=== PATIENT | female | born 1965 | race Caucasian/White ===

== ENCOUNTER 2016-07-24 21:26 | Emergency (ER) | payer SELFPAY ==
[~2016-07-24] VITALS: Ht 167.6 cm; Wt 105.0 kg
[~2016-07-24 21:26] MED LIST: HYDR12.56 PO; LISI-363 PO; LISI-515 PO; METHI10 PO; METO25 PO; METO25TA3 PO
[2016-07-24 21:32] VITALS: BP 160/91; PULSE 87; RESP 18; TEMP 97.9; O2SAT 97
--- NOTE | 2016-07-24 22:37 | PD ---
HPI Chief Complaint: Medication Refill Request Time Seen by Provider: 20:20 (Crys Phan) Time Seen by Provider: 22:01 (Олег Arreola MD) Travel History International Travel<30 days: No Contact w/Intl Traveler<30days: No Traveled to known affect area: No (Crys Phan) History of Present Illness HPI Patient's a 51-year-old female presenting to emergency for refill of her methimazole. She states that she went to [facility] and they told her to come back here to have it filled as they would not fill it. Patient states that she is afraid she is going to have a thyroid storm. She just started a job and does not have insurance benefits for 30 days. She denies any complaints at this time. She denies any palpitations, tachycardia, chest pain. Patient has been out of his medication for several months. (Crys Phan) [facility] Past Medical History Arthritis: Yes (LEFT KNEE) Heart Rhythm Problems: Yes (MURMUR) Cancer: No Cardiac Catheterization: No Cardiovascular Problems: Yes (HTN) High Cholesterol: No Congestive Heart Failure: Yes (hx) Diabetes: No Diminished Hearing: No Endocrine: Yes (GRAVES DISEASE) Gastrointestinal Disorders: No Genitourinary: No Headaches: Yes Hypertension: Yes Immune Disorder: Yes (Graves) Implanted Vascular Access Dvce: No Musculoskeletal: Yes Neurologic: Yes Psychiatric: No Reproductive: No Respiratory: Yes Thyroid Disease: Yes (GRAVES DISEASE) PNEUMOCCOCAL Vaccine (Year): 2 ?: Not Menopausal: No : 4 Para: 3 Miscarriage: 1 : 0 Ectopic : Yes (2001) (Crys Phan) Past Surgical History Coronary Artery Bypass Graft: No Gynecologic Surgery: Yes (hx ectopic 2001) Other Surgery: Yes (ectopic ) (Crys Phan) Social History Alcohol Use: No Tobacco Use: No Substance Use: No (Crys Phan) Allergies-Medications (Allergen,Severity, Reaction): Coded Allergies: No Known Allergies (Verified , 07/24/16) Reported Meds & Prescriptions Reported Meds & Active Scripts Active Lisinopril 20 Mg Tab 20 Mg PO DAILY Hydrochlorothiazide 12.5 Mg Tab 12.5 Mg PO DAILY Metoprolol Tartrate 25 Mg Tab 25 Mg PO BID Metoprolol Tartrate 25 mg (Metoprolol Tartrate) 25 Mg Tab 25 Mg PO BID 30 Days Lisinopril 20 mg (Lisinopril) 20 Mg Tab 1 Tab PO DAILY 30 Days Hydrochlorothiazide (Miscellaneous Medication) 12.5 Mg Tab 1 Tab PO DAILY 30 Days Hydrochlorothiazide (Miscellaneous Medication) 12.5 Mg Cap 12.5 Mg PO BID 30 Days Lisinopril 20 mg (Lisinopril) 20 Mg Tab 1 Tab PO DAILY 30 Days Tapazole 10 Mg10 Mg 10 Mg Tab 25 Mg PO BID 30 Days Metoprolol Tartrate 25 mg (Metoprolol Tartrate) 25 Mg Tab 50 Mg PO BID 30 Days (Олег Arreola MD) Review of Systems Except as stated in HPI: all other systems reviewed are Neg (Crys Phan) Physical Exam Narrative GENERAL: Well-nourished, well-developed patient. In no acute distress SKIN: Warm and dry. HEAD: Normocephalic. EYES: No scleral icterus. No injection or drainage. NECK: Supple, trachea midline. No JVD or lymphadenopathy. CARDIOVASCULAR: Regular rate and rhythm without murmurs, gallops, or rubs. RESPIRATORY: Breath sounds equal bilaterally. No accessory muscle use. (Crys Phan) Data Data Last Documented VS Vital Signs Date Time Temp Pulse Resp B/P Pulse Ox O2 Delivery O2 Flow Rate FiO2 07/24/16 21:32 97.9 87 18 160/91 97 (Олег Arreola MD) [facility] Medical Decision Making Medical Screen Exam Complete: Yes Emergency Medical Condition: No Medical Record Reviewed: Yes Interpretation(s) Vital Signs Date Time Temp Pulse Resp B/P Pulse Ox O2 Delivery O2 Flow Rate FiO2 07/24/16 21:32 97.9 87 18 160/91 97 Differential Diagnosis Medication refill versus hyperthyroidism versus hypertension versus other Narrative Course Patient is a 51-year-old female who presented to the emergency department for a medication refill of her methimazole. Patient has been off of it for at least 3 months if not longer. I personally saw the patient on June 10, 2016 at the main [place] [facility]. At that time she was advised that methimazole needs to have follow-up for dose titration, labs. She was encouraged to follow up with a primary doctor to have blood work performed and medication prescribed. Patient is presenting stating that the doctor at [facility] in the emergency department told her to come back here and have the medication prescribed. Patient was once again told that she will need to see a primary doctor to have this medication dosed appropriately. Patient was advised that we are not able to follow her as this is an emergency department. At that time she began to get agitated stating "I thought this was a [facility]". She then stated that she was going to "[place]". At that time I discussed with my attending physician, Dr. Arreola who came and spoke with the patient, he reiterated what I had already a told her twice before. That she will need to find a primary doctor or clinic to draw labs and monitor her thyroid levels. Patient then left the ER stating that we were unfit to be doctors. A medical screening exam was performed: At the time of evaluation the presenting medical condition was determined not to be of an emergent nature. The patient was given the option of receiving additional care, but declined. Patient was given options for additional community resources from which to obtain care. The Patient Has Been advised to seek medical attention for their presenting complaint. The patient has been advised to return to the ER at any time if an emergent condition develops. (Crys Phan) Diagnosis Primary Impression: Encounter for medical screening examination Condition: Stable Crys Phan Jul 24, 2016 22:37 Олег Arreola MD Jul 25, 2016 19:00
== END 2016-07-24 22:30 | disposition left against medical advice (07) ==
LOC: PHEFT 21:26
DX: Z76.0 Encounter for issue of repeat prescription (principal); M19.90 Unspecified osteoarthritis, unspecified site; I10 Essential (primary) hypertension; E05.00 Thyrotoxicosis with diffuse goiter without thyrotoxic crisis or storm
CPT/HCPCS: 99281

== ENCOUNTER 2017-11-01 11:32 | Emergency (ER) | payer SELFPAY ==
[~2017-11-01] VITALS: Ht 167.6 cm; Wt 90.0 kg
[2017-11-01 11:48] VITALS: BP 155/81; PULSE 85; O2SAT 97
[2017-11-01] MEDS ORDERED: METHI10 PO (11:57)
[2017-11-01] MEDS ORDERED: FURO20TA PO (11:57)
[2017-11-01] MEDS ORDERED: METO25TA3 PO (11:57)
--- NOTE | 2017-11-01 12:06 | PD ---
HPI Chief Complaint: Edema Time Seen by Provider: 11:57 Travel History International Travel<30 days: No Contact w/Intl Traveler<30days: No Traveled to known affect area: No History of Present Illness HPI 52-year-old female with history of hypertension and CHF which she reports that diagnosis was removed from her history, presents emergency department today for evaluation of lower extremity edema worsening over the last 4-5 days. Patient states she had some Lasix left over and she took 3 or 4 tablets over the last 2- 3 days and it did not seem to help the edema. She denies any shortness of breath. No chest tightness. No difficulty breathing. She reports no pain. Patient states she is currently homeless and lives in her car. She has been eating very salty foods. She has no other symptoms to report at this time. PFSH Past Medical History Arthritis: Yes (LEFT KNEE) Heart Rhythm Problems: Yes (MURMUR) Cancer: No Cardiac Catheterization: No Cardiovascular Problems: Yes (HTN) High Cholesterol: No Congestive Heart Failure: Yes (hx) Diabetes: No Diminished Hearing: No Endocrine: Yes (GRAVES DISEASE) Gastrointestinal Disorders: No Genitourinary: No Headaches: Yes Hypertension: Yes Immune Disorder: Yes (Graves) Implanted Vascular Access Dvce: No Musculoskeletal: Yes Neurologic: Yes Psychiatric: No Reproductive: No Respiratory: Yes Thyroid Disease: Yes (GRAVES DISEASE) PNEUMOCCOCAL Vaccine (Year): 2 ?: Not Menopausal: No : 4 Para: 3 Miscarriage: 1 : 0 Ectopic : Yes (2001) Past Surgical History Coronary Artery Bypass Graft: No Gynecologic Surgery: Yes (hx ectopic 2001) Other Surgery: Yes (ectopic ) Social History Alcohol Use: No Tobacco Use: No Substance Use: No Allergies-Medications (Allergen,Severity, Reaction): Coded Allergies: No Known Allergies (Verified , 07/24/16) Reported Meds & Prescriptions Reported Meds & Active Scripts Active Reported Metoprolol Tartrate 25 Mg Tab 25 Mg PO BID Methimazole 10 Mg Tab 10 Mg PO TID Furosemide 20 Mg Tab 20 Mg PO DAILY Review of Systems Except as stated in HPI: all other systems reviewed are Neg Physical Exam Narrative GENERAL: Well-nourished female patient, sitting up in bed in no acute distress SKIN: Focused skin assessment warm/dry. HEAD: Atraumatic. Normocephalic. EYES: Pupils equal and round. No scleral icterus. No injection or drainage. ENT: No nasal bleeding or discharge. Mucous membranes pink and moist. NECK: Trachea midline. No JVD. CARDIOVASCULAR: Regular rate and rhythm. No murmur appreciated. RESPIRATORY: No accessory muscle use. Diminished bases but otherwise clear to auscultation. Breath sounds equal bilaterally. GASTROINTESTINAL: Abdomen soft, non-tender, nondistended. Hepatic and splenic margins not palpable. MUSCULOSKELETAL: No obvious deformities. No clubbing. No cyanosis. 1+ bilateral lower extremity edema. Nonpitting NEUROLOGICAL: Awake and alert. No obvious cranial nerve deficits. Motor grossly within normal limits. Normal speech. PSYCHIATRIC: Appropriate mood and affect; insight and judgment normal. Data Data Last Documented VS Vital Signs Date Time Temp Pulse Resp B/P (MAP) Pulse Ox O2 Delivery O2 Flow Rate FiO2 11/01/17 12:12 16 97 Room Air 11/01/17 11:48 85 Orders Orders Complete Blood Count With Diff (11/01/17 12:03) Comprehensive Metabolic Panel (11/01/17 12:03) B-Type Natriuretic Peptide (11/01/17 12:03) Urinalysis - C+S If Indicated (11/01/17 12:03) Iv Access Insert/Monitor (11/01/17 12:03) Electrocardiogram (11/01/17 12:03) Ecg Monitoring (11/01/17 12:03) Oximetry (11/01/17 12:03) Oxygen Administration (11/01/17 12:03) Chest, Single Ap (11/01/17 12:03) Sodium Chloride 0.9% Flush (Ns Flush) (11/01/17 12:15) Ed Discharge Order (11/01/17 14:29) Labs Laboratory Tests Test 11/01/17 12:11 11/01/17 12:15 White Blood Count 8.0 TH/MM3 Red Blood Count 4.85 MIL/MM3 Hemoglobin 12.8 GM/DL Hematocrit 38.2 % Mean Corpuscular Volume 78.7 FL Mean Corpuscular Hemoglobin 26.4 PG Mean Corpuscular Hemoglobin Concent 33.6 % Red Cell Distribution Width 14.4 % Platelet Count 212 TH/MM3 Mean Platelet Volume 9.0 FL Neutrophils (%) (Auto) 68.9 % Lymphocytes (%) (Auto) 23.9 % Monocytes (%) (Auto) 6.7 % Eosinophils (%) (Auto) 0.0 % Basophils (%) (Auto) 0.5 % Neutrophils # (Auto) 5.5 TH/MM3 Lymphocytes # (Auto) 1.9 TH/MM3 Monocytes # (Auto) 0.5 TH/MM3 Eosinophils # (Auto) 0.0 TH/MM3 Basophils # (Auto) 0.0 TH/MM3 CBC Comment DIFF FINAL Differential Comment Blood Urea Nitrogen 12 MG/DL Creatinine 0.77 MG/DL Random Glucose 115 MG/DL Total Protein 8.1 GM/DL Albumin 3.6 GM/DL Calcium Level 8.7 MG/DL Alkaline Phosphatase 116 U/L Aspartate Amino Transf (AST/SGOT) 22 U/L Alanine Aminotransferase (ALT/SGPT) 31 U/L Total Bilirubin 0.3 MG/DL Sodium Level 142 MEQ/L Potassium Level 3.4 MEQ/L Chloride Level 105 MEQ/L Carbon Dioxide Level 27.5 MEQ/L Anion Gap 10 MEQ/L Estimat Glomerular Filtration Rate 79 ML/MIN B-Type Natriuretic Peptide 3 PG/ML Urine Color YELLOW Urine Turbidity CLOUDY Urine pH 5.0 Urine Specific [place] 1.026 Urine Protein 30 mg/dL Urine Glucose (UA) NEG mg/dL Urine Ketones TRACE mg/dL Urine Occult Blood LARGE Urine Nitrite NEG Urine Bilirubin NEGATIVE Urine Urobilinogen 2.0 MG/DL Urine Leukocyte Esterase NEGATIVE Urine RBC 28 /hpf Urine WBC 3 /hpf Urine Squamous Epithelial Cells 19 /hpf Urine Bacteria RARE /hpf Urine Mucus MANY /lpf Microscopic Urinalysis Comment CULT NOT INDICATED MDM Medical Decision Making Medical Screen Exam Complete: Yes Emergency Medical Condition: Yes Medical Record Reviewed: Yes Differential Diagnosis Dependent edema versus electrolyte abnormality versus CHF Narrative Course 52-year-old female presents emergency department for evaluation lower extremity edema. Patient appears well and without distress. Her vital signs are stable. Imaging studies and lab work is ordered. Laboratory Tests Test 11/01/17 12:11 11/01/17 12:15 White Blood Count 8.0 TH/MM3 Red Blood Count 4.85 MIL/MM3 Hemoglobin 12.8 GM/DL Hematocrit 38.2 % Mean Corpuscular Volume 78.7 FL Mean Corpuscular Hemoglobin 26.4 PG Mean Corpuscular Hemoglobin Concent 33.6 % Red Cell Distribution Width 14.4 % Platelet Count 212 TH/MM3 Mean Platelet Volume 9.0 FL Neutrophils (%) (Auto) 68.9 % Lymphocytes (%) (Auto) 23.9 % Monocytes (%) (Auto) 6.7 % Eosinophils (%) (Auto) 0.0 % Basophils (%) (Auto) 0.5 % Neutrophils # (Auto) 5.5 TH/MM3 Lymphocytes # (Auto) 1.9 TH/MM3 Monocytes # (Auto) 0.5 TH/MM3 Eosinophils # (Auto) 0.0 TH/MM3 Basophils # (Auto) 0.0 TH/MM3 CBC Comment DIFF FINAL Differential Comment Blood Urea Nitrogen 12 MG/DL Creatinine 0.77 MG/DL Random Glucose 115 MG/DL Total Protein 8.1 GM/DL Albumin 3.6 GM/DL Calcium Level 8.7 MG/DL Alkaline Phosphatase 116 U/L Aspartate Amino Transf (AST/SGOT) 22 U/L Alanine Aminotransferase (ALT/SGPT) 31 U/L Total Bilirubin 0.3 MG/DL Sodium Level 142 MEQ/L Potassium Level 3.4 MEQ/L Chloride Level 105 MEQ/L Carbon Dioxide Level 27.5 MEQ/L Anion Gap 10 MEQ/L Estimat Glomerular Filtration Rate 79 ML/MIN B-Type Natriuretic Peptide 3 PG/ML Urine Color YELLOW Urine Turbidity CLOUDY Urine pH 5.0 Urine Specific [place] 1.026 Urine Protein 30 mg/dL Urine Glucose (UA) NEG mg/dL Urine Ketones TRACE mg/dL Urine Occult Blood LARGE Urine Nitrite NEG Urine Bilirubin NEGATIVE Urine Urobilinogen 2.0 MG/DL Urine Leukocyte Esterase NEGATIVE Urine RBC 28 /hpf Urine WBC 3 /hpf Urine Squamous Epithelial Cells 19 /hpf Urine Bacteria RARE /hpf Urine Mucus MANY /lpf Microscopic Urinalysis Comment CULT NOT INDICATED Last Impressions Chest X-Ray 11/01/17 1203 Signed Impressions: Service Date/Time: Wednesday, November 01, 2017 12:23 - CONCLUSION: Linear left basilar atelectasis. Yaya Xie MD Findings are reviewed and discussed with my attending physician. Patient be discharged home to follow-up the primary care provider. She is counseled on a low-sodium diet and elevating her lower extremities. She agrees to return immediately with any acute worsening symptoms. Diagnosis Primary Impression: Bilateral lower extremity edema Referrals: Primary Care Physician Patient Instructions: Edema (ED), General Instructions Additional Instructions: Elevate the affected extremities Avoid salt or high sodium foods Return immediately with any acute worsening symptoms Med/Other Pt SpecificInfo: No Change to Meds Disposition: 01 DISCHARGE HOME Condition: Stable Leanna Phipps November 01, 2017 12:05
[2017-11-01 12:12] VITALS: RESP 16; O2SAT 97
[2017-11-01] MEDS ORDERED: SODIUM CHLORIDE 0.9% FLUSH 10 ML FLUSH IVF PRN (12:15)
[2017-11-01 12:45] LABS: AUTOMATED NEUTROPHIL # 5.5 TH/MM3 (1.8-7.7); BASOPHIL % 0.5 % (0.0-2.0); HEMATOCRIT 38.2 % (35.0-46.0); HEMOGLOBIN 12.8 GM/DL (11.6-15.3); LYMPH % 23.9 % (9.0-44.0); LYMPHOCYTE # 1.9 TH/MM3 (1.0-4.8); MEAN CELL VOLUME 78.7 FL (80.0-100.0); MEAN CORPUSCULAR HEMOGLOBIN 26.4 PG (27.0-34.0); MEAN CORPUSCULAR HGB CONC 33.6 % (32.0-36.0); MONO % 6.7 % (0.0-8.0); MONOCYTE # 0.5 TH/MM3 (0-0.9); NEUT % 68.9 % (16.0-70.0); PLATELET COUNT 212 TH/MM3 (150-450); RED BLOOD COUNT 4.85 MIL/MM3 (4.00-5.30); RED CELL DISTRIBUTION WIDTH 14.4 % (11.6-17.2)
--- NOTE | 2017-11-01 12:50 | RADRPT ---
EXAM DATE/TIME: 11/01/2017 12:23 [place] COMPARISON: CHEST SINGLE AP, May 18, 2015, 10:51. INDICATIONS : Shortness of breath. Stroke alert. MEDICAL HISTORY : Graves disease, high blood pressure. SURGICAL HISTORY : None. ENCOUNTER: Initial ACUITY: 1 day PAIN SCORE: 0/10 LOCATION: chest FINDINGS: A single view of the chest demonstrates the lungs to be symmetrically aerated without evidence of mas s, infiltrate or effusion. There is linear atelectasis in the retrocardiac left lower lung. Both he midiaphragms are well delineated. The cardiomediastinal contours are unremarkable. Osseous structur es are intact. CONCLUSION: Linear left basilar atelectasis. Yaya Xie MD on November 01, 2017 at 12:47 Board Certified Radiologist. This report was verified electronically.
[2017-11-01 13:18] LABS: ALBUMIN 3.6 GM/DL (3.4-5.0); ALT (GPT) 31 U/L (10-53); AST (GOT) 22 U/L (15-37); BICARBONATE 27.5 MEQ/L (21.0-32.0); CALCIUM 8.7 MG/DL (8.5-10.1); CHLORIDE 105 MEQ/L (98-107); CREATININE 0.77 MG/DL (0.50-1.00); GLOMERULAR FILTRATION RATE 79 ML/MIN (>89); GLUCOSE,RANDOM 115 MG/DL (74-106); SODIUM (NA) 142 MEQ/L (136-145)
[2017-11-01 13:25] LABS: ALKALINE PHOSPHATASE 116 U/L (45-117); BLOOD UREA NITROGEN 12 MG/DL (7-18); TOTAL BILIRUBIN ADULT 0.3 MG/DL (0.2-1.0); TOTAL PROTEIN 8.1 GM/DL (6.4-8.2)
[2017-11-01 13:41] LABS: URINE COLOR YELLOW (YELLW/STRAW)
[2017-11-01 13:42] LABS: BILIRUBIN, URINE NEGATIVE (NEG); BLOOD, URINE LARGE (NEG); GLUCOSE,URINE NEG (NEG); KETONE, URINE TRACE mg/dL (NEG); NITRITE,URINE NEG (NEG); URINE LEUKOCYTE ESTERASE NEGATIVE (NEG)
[2017-11-01 13:43] LABS: BACTERIA, URINE RARE /hpf; MUCUS URINE MANY /lpf (OCC); SQUAMOUS EPITHELIAL CELL URINE 19 /hpf (0-5)
--- NOTE | 2017-11-01 14:26 | EKG ---
Date Performed: 11/01/2017 Time Performed: 12:39:53 PTAGE: 52 years EKG: Sinus rhythm VOLTAGE CRITERIA FOR LVH ABNORMAL ECG PREVIOUS TRACING : 12/03/2015 17.21 Since the previous tracing, no significant change noted DOCTOR: Rylan Riley Interpretating Date/Time 11/01/2017 14:24:22
--- NOTE | 2017-11-01 15:06 | PD ---
Physical Exam Date Seen by Provider: November 01, 2017 Time Seen by Provider: 14:00 Narrative I, Dr. Stanley, have reviewed the advance practice practitioner's documentation and am in agreement, met with the patient face to face, made the diagnosis, and the medical decision making was done by me. *My assessment and Findings: Patient seen and evaluated with nurse practitioner , please see nurse practitioner notes for further details. She is coming in with leg swelling, otherwise, pulmonary exam was fairly unremarkable. She has been on diuretics in the past, but states that her medications had ran out and she has not been taking her thyroid medications as well. She also states that she is homeless and has been sitting in her car a lot, and this could be contributing to her leg swelling. Her chest x-ray did not show any signs of acute pulmonary edema. Lab work was fairly unremarkable. And at this time, plan would be to release her with diuretics as needed and follow-up with primary care doctor. Return for any worsening in symptoms as needed. The plan has been discussed with her and she states understanding. Data Data Last Documented VS Vital Signs Date Time Temp Pulse Resp B/P (MAP) Pulse Ox O2 Delivery O2 Flow Rate FiO2 11/01/17 12:12 16 97 Room Air 11/01/17 11:48 85 Orders Orders Complete Blood Count With Diff (11/01/17 12:03) Comprehensive Metabolic Panel (11/01/17 12:03) B-Type Natriuretic Peptide (11/01/17 12:03) Urinalysis - C+S If Indicated (11/01/17 12:03) Iv Access Insert/Monitor (11/01/17 12:03) Electrocardiogram (11/01/17 12:03) Ecg Monitoring (11/01/17 12:03) Oximetry (11/01/17 12:03) Oxygen Administration (11/01/17 12:03) Chest, Single Ap (11/01/17 12:03) Sodium Chloride 0.9% Flush (Ns Flush) (11/01/17 12:15) Ed Discharge Order (11/01/17 14:29) Labs Laboratory Tests Test 11/01/17 12:11 11/01/17 12:15 White Blood Count 8.0 TH/MM3 Red Blood Count 4.85 MIL/MM3 Hemoglobin 12.8 GM/DL Hematocrit 38.2 % Mean Corpuscular Volume 78.7 FL Mean Corpuscular Hemoglobin 26.4 PG Mean Corpuscular Hemoglobin Concent 33.6 % Red Cell Distribution Width 14.4 % Platelet Count 212 TH/MM3 Mean Platelet Volume 9.0 FL Neutrophils (%) (Auto) 68.9 % Lymphocytes (%) (Auto) 23.9 % Monocytes (%) (Auto) 6.7 % Eosinophils (%) (Auto) 0.0 % Basophils (%) (Auto) 0.5 % Neutrophils # (Auto) 5.5 TH/MM3 Lymphocytes # (Auto) 1.9 TH/MM3 Monocytes # (Auto) 0.5 TH/MM3 Eosinophils # (Auto) 0.0 TH/MM3 Basophils # (Auto) 0.0 TH/MM3 CBC Comment DIFF FINAL Differential Comment Blood Urea Nitrogen 12 MG/DL Creatinine 0.77 MG/DL Random Glucose 115 MG/DL Total Protein 8.1 GM/DL Albumin 3.6 GM/DL Calcium Level 8.7 MG/DL Alkaline Phosphatase 116 U/L Aspartate Amino Transf (AST/SGOT) 22 U/L Alanine Aminotransferase (ALT/SGPT) 31 U/L Total Bilirubin 0.3 MG/DL Sodium Level 142 MEQ/L Potassium Level 3.4 MEQ/L Chloride Level 105 MEQ/L Carbon Dioxide Level 27.5 MEQ/L Anion Gap 10 MEQ/L Estimat Glomerular Filtration Rate 79 ML/MIN B-Type Natriuretic Peptide 3 PG/ML Urine Color YELLOW Urine Turbidity CLOUDY Urine pH 5.0 Urine Specific [place] 1.026 Urine Protein 30 mg/dL Urine Glucose (UA) NEG mg/dL Urine Ketones TRACE mg/dL Urine Occult Blood LARGE Urine Nitrite NEG Urine Bilirubin NEGATIVE Urine Urobilinogen 2.0 MG/DL Urine Leukocyte Esterase NEGATIVE Urine RBC 28 /hpf Urine WBC 3 /hpf Urine Squamous Epithelial Cells 19 /hpf Urine Bacteria RARE /hpf Urine Mucus MANY /lpf Microscopic Urinalysis Comment CULT NOT INDICATED MDM Medical Record Reviewed: Yes Supervised Visit with MELY: Yes Diagnosis Primary Impression: Bilateral lower extremity edema Referrals: Primary Care Physician Patient Instructions: General Instructions, Edema (ED) Departure Forms: Tests/Procedures Additional Instruction: Elevate the affected extremities Avoid salt or high sodium foods Return immediately with any acute worsening symptoms Disposition: 01 DISCHARGE HOME Condition: Stable SoonJordan webb MD November 01, 2017 15:06
== END 2017-11-01 15:11 | disposition home or self-care (01) ==
LOC: NEPE 11:32
DX: R60.0 Localized edema (principal); R94.31 Abnormal electrocardiogram [ECG] [EKG]; J98.11 Atelectasis; I10 Essential (primary) hypertension; I50.9 Heart failure, unspecified; E05.00 Thyrotoxicosis with diffuse goiter without thyrotoxic crisis or storm; Z87.39 Personal history of other diseases of the musculoskeletal system and connective tissue; Z86.69 Personal history of other diseases of the nervous system and sense organs
CPT/HCPCS: 71045; 80053; 81001; 83880; 85025; 93005; 99284